=== PATIENT | male | born 1995 | race Caucasian/White ===

== ENCOUNTER 2017-06-21 00:05 | Emergency (ER) | payer OTHER ==
[~2017-06-21] VITALS: Ht 180.3 cm; Wt 66.5 kg
[2017-06-21 00:07] VITALS: BP 122/80
== END 2017-06-21 01:30 | disposition home or self-care (01) ==
LOC: ED 00:55
DX: R51 Headache (principal); Z88.8 Allergy status to other drugs, medicaments and biological substances
CPT/HCPCS: 99282